=== PATIENT | female | born 1985 | race Caucasian/White ===

== ENCOUNTER 2017-12-10 23:28 | Outpatient (CLI) | payer BC, OTHER ==
[~2017-12-10] VITALS: Ht 160 cm; Wt 98.2 kg
[~2017-12-10 23:28] MED LIST: ADIPEX-P37.5 MG PO; FLINTSTONES1 CTB PO; MIRENA52 MG IU; PREDNISONE20 MG PO; ZYRTEC5 MG PO
[2017-12-10 23:48] VITALS: BP 136/78; PULSE 104; TEMP 98.5
[2017-12-10] MEDS ORDERED: CALCIUM CARBON650 M2 PO (23:52)
[2017-12-10] MEDS ORDERED: PRENATAL MVI PO (23:53)
[2017-12-10] MEDS ORDERED: TYLENOL 500MG500 MG PO (23:54)
[2017-12-11] VITALS (7 sets, daily range): BP systolic 105–126; BP diastolic 61–75; PULSE 78–108
[2017-12-11 00:26] LABS: BASO % 0.2 % (0.0-2.0); EOS # 0.1 (0.0-0.7); EOS % 1.4 % (0-4.0); GRAN # 7.6 (1.4-6.5); GRAN % 74.2 % (42.2-75.2); HEMATOCRIT 32.8 % (37.0-47.0); HEMOGLOBIN 10.9 g/dl (12.5-16.0); LYMPH # 1.7 (1.2-3.4); LYMPH % 16.8 % (20.0-51.0); MEAN CELL VOLUME 84 fl (80.0-100.0); MEAN CORPUSCULAR HEMOGLOBIN 28 pg (27.0-31.0); MEAN CORPUSCULAR HGB CONC 33 g/dl (33.0-37.0); MEAN PLATELET VOLUME 9.9 fl (7.4-10.4); MONO # 0.7 (0.1-0.6); MONO % 6.7 % (1.7-9.3); PLATELET COUNT 242 K/mm3 (130-400); RED BLOOD COUNT 3.91 M/mm3 (4.10-5.30); REDCELL DISTRIBUTION WIDTH-CV 12.7 % (11.5-14.5)
[2017-12-11 00:36] LABS: ALBUMIN 3.4 gm/dL (3.5-5.0); BILIRUBIN,TOTAL 0.2 mg/dL (0.0-1.0); CALCIUM 9.1 mg/dL (8.4-10.2); CREATININE, serum 0.5 mg/dL (0.52-1.25); POTASSIUM 3.8 mmol/L (3.4-5.0); TOTAL PROTEIN 6.5 gm/dL (6.4-8.2)
[2017-12-11 01:28] LABS: COLLECTION METHOD CLEAN CATCH
[2017-12-11 01:33] LABS: PH 6 (5-8); URINE APPEARANCE Clear; URINE BACTERIA Rare /hpf; URINE BILIRUBIN Negative (NEGATIVE); URINE BLOOD Negative (NEGATIVE); URINE COLOR Yellow; URINE GLUCOSE Negative (NEGATIVE); URINE KETONE Negative (NEGATIVE); URINE LEUKOCYTE ESTERASE Negative (NEGATIVE); URINE NITRATE Negative (NEGATIVE); URINE PROTEIN(semi-quant) Negative (NEGATIVE); URINE RBC None Seen /hpf; URINE UROBILINOGEN Negative (NEGATIVE); URINE WBC 0-2 /hpf
== END 2017-12-11 01:57 | disposition home or self-care (01) ==
LOC: LDRO 23:28
PROVIDERS: Obstetrics & Gynecology
DX: O99.89 Other specified diseases and conditions complicating pregnancy, childbirth and the puerperium (principal); R10.9 Unspecified abdominal pain; Z3A.31 31 weeks gestation of pregnancy

== ENCOUNTER 2018-02-03 05:28 | Inpatient (IN) | payer BC, OTHER ==
[2018-02-03] VITALS (18 sets, daily range): BP systolic 99–142; BP diastolic 57–90; PULSE 74–99; TEMP 97.8–98.2
[~2018-02-03] VITALS: Ht 160 cm; Wt 101.4 kg
[~2018-02-03 05:28] MED LIST changes: +CALCIUM CARBON650 M2 PO; +PRENATAL MVI PO; +TYLENOL 500MG500 MG PO
[2018-02-03 06:26] LABS: BASO % 0.2 % (0.0-2.0); EOS # 0.1 (0.0-0.7); EOS % 1.4 % (0-4.0); GRAN % 61.5 % (42.2-75.2); HEMOGLOBIN 11.7 g/dl (12.5-16.0); LYMPH # 1.8 (1.2-3.4); LYMPH % 27.5 % (20.0-51.0); MEAN CELL VOLUME 81 fl (80.0-100.0); MEAN CORPUSCULAR HEMOGLOBIN 27 pg (27.0-31.0); MEAN CORPUSCULAR HGB CONC 34 g/dl (33.0-37.0); MEAN PLATELET VOLUME 11.2 fl (7.4-10.4); MONO # 0.6 (0.1-0.6); MONO % 8.6 % (1.7-9.3); PLATELET COUNT 236 K/mm3 (130-400); RED BLOOD COUNT 4.33 M/mm3 (4.10-5.30); REDCELL DISTRIBUTION WIDTH-CV 13.3 % (11.5-14.5)
[2018-02-03 06:29] LABS: HEMATOCRIT 34.9 % (37.0-47.0)
[2018-02-03] MEDS ORDERED: MOTRIN 800800 MG/TAB PO (06:59)
[2018-02-03] MEDS ORDERED: PERCOCET 325 MG1 TA2 PO (06:59)
[2018-02-04 07:06] LABS: HEMATOCRIT 32.6 % (37.0-47.0); HEMOGLOBIN 10.9 g/dl (12.5-16.0)
[2018-02-04 07:31] VITALS: BP 118/69; PULSE 84; TEMP 97.6
[2018-02-04 21:23] VITALS: BP 122/74; PULSE 100; TEMP 98.2
[2018-02-05 07:29] VITALS: BP 120/73; PULSE 85; TEMP 97.9
== END 2018-02-05 12:10 | disposition home or self-care (01) | DRG 785 ==
LOC: OB 05:28 → LDR 09:49 → OB 02-04 05:37
PROVIDERS: Obstetrics & Gynecology
PROC: 10D00Z1 Extraction of Products of Conception, Low, Open Approach (ICD-10-PCS; principal; 2018-02-03)
PROC: 0UT60ZZ Resection of Left Fallopian Tube, Open Approach (ICD-10-PCS; 2018-02-03)
PROC: 0UB50ZZ Excision of Right Fallopian Tube, Open Approach (ICD-10-PCS; 2018-02-03)
DX: O34.211 Maternal care for low transverse scar from previous cesarean delivery (principal); O99.214 Obesity complicating childbirth; Z3A.39 39 weeks gestation of pregnancy; Z37.0 Single live birth; O99.824 Streptococcus B carrier state complicating childbirth; Z30.2 Encounter for sterilization; O69.81X0 Labor and delivery complicated by cord around neck, without compression, not applicable or unspecified; N73.6 Female pelvic peritoneal adhesions (postinfective)
CPT/HCPCS: J0690; J1885; J2370; J2405; J2590; J7120

== ENCOUNTER 2018-09-11 20:06 | Emergency (ER) | payer BC, OTHER ==
[~2018-09-11] VITALS: Ht 160 cm; Wt 85.5 kg
[~2018-09-11 20:06] MED LIST changes: +MOTRIN 800800 MG/TAB PO; +PERCOCET 325 MG1 TA2 PO
[2018-09-11 20:11] VITALS: BP 124/91; PULSE 104; TEMP 97
== END 2018-09-11 21:00 | disposition home or self-care (01) ==
LOC: COL.ER 20:06
DX: S61.411A Laceration without foreign body of right hand, initial encounter (principal); W26.0XXA Contact with knife, initial encounter; Y92.009 Unspecified place in unspecified non-institutional (private) residence as the place of occurrence of the external cause

== ENCOUNTER → 2019-10-26 | Outpatient (CLI) | payer BC, OTHER ==
[~2019-10-26] MED LIST changes: +MIRENA52 MG IY; +NORCO 325 MG-51 TAB PO
== END ==
LOC: COL.RAD 10:18
DX: R74.8 Abnormal levels of other serum enzymes (principal)

== ENCOUNTER 2021-05-01 09:36 | Emergency (ER) | payer OTHER ==
[~2021-05-01] VITALS: Ht 160 cm; Wt 81.8 kg
[2021-05-01 09:52] VITALS: TEMP 98.9
[2021-05-01 10:09] LABS: COLLECTION METHOD CLEAN CATCH
[2021-05-01 10:18] LABS: MUCOUS Present (NOT PRESENT); PH 5 (5-8); SQUAMOUS EPITHELIAL 0-2 /hpf (0-10); URINE APPEARANCE Clear (CLEAR/HAZY); URINE BACTERIA Rare /hpf (NONE SEEN); URINE BILIRUBIN Negative (NEGATIVE); URINE BLOOD Negative (NEGATIVE); URINE COLOR Yellow (YELLOW); URINE GLUCOSE Negative (NEGATIVE); URINE KETONE Trace (NEGATIVE); URINE LEUKOCYTE ESTERASE Negative (NEGATIVE); URINE NITRATE Negative (NEGATIVE); URINE PROTEIN(semi-quant) Negative (NEGATIVE); URINE RBC 0-2 /hpf (0-2); URINE UROBILINOGEN Negative (NEGATIVE)
[2021-05-01 11:17] LABS: HEMATOCRIT 41.7 % (37.0-47.0); HEMOGLOBIN 13.9 g/dl (12.5-16.0); MEAN CELL VOLUME 89 fl (80.0-100.0); MEAN CORPUSCULAR HEMOGLOBIN 30 pg (27-31); MEAN CORPUSCULAR HGB CONC 33 g/dl (33.0-37.0); MEAN PLATELET VOLUME 9.6 fl (7.4-10.4); PLATELET COUNT 220 K/mm3 (130-400); REDCELL DISTRIBUTION WIDTH-CV 11.9 % (11.5-14.5)
[2021-05-01 11:40] LABS: BILIRUBIN,TOTAL 0.5 mg/dL (0.2-1.2); C-REACTIVE PROTEIN 0.82 mg/dL (0.00-0.50); CALCIUM 8.3 mg/dL (8.4-10.2); CREATININE, serum 0.75 mg/dL (0.57-1.11); POTASSIUM 3.6 mmol/L (3.5-4.5)
[2021-05-01 11:52] LABS: BAND 4 % (0-10); LYMPHOCYTE 7 % (20.0-51.0); NEUTROPHILS 88 % (42.0-75.2); PLATELET ESTIMATE NORMAL (NORMAL)
[2021-05-01] MEDS ORDERED: NORCO 325 MG-51 TAB PO (13:54)
[2021-05-01 14:18] VITALS: BP 108/79; PULSE 110
== END 2021-05-01 14:18 | disposition home or self-care (01) ==
LOC: COL.ER 09:36
PROVIDERS: Emergency Medicine; Nurse Practitioner
DX: R10.11 Right upper quadrant pain (principal); R10.12 Left upper quadrant pain; R11.2 Nausea with vomiting, unspecified; Z32.02 Encounter for pregnancy test, result negative
CPT/HCPCS: J1170; J2405; J7030

== ENCOUNTER 2021-08-07 05:30 | Observation (INO) | payer OTHER ==
[2021-08-07] VITALS (10 sets, daily range): BP systolic 127–145; BP diastolic 81–93; PULSE 58–66; TEMP 97.3–98.6
[~2021-08-07] VITALS: Ht 160 cm; Wt 84.0 kg
[2021-08-07 06:00] LABS: BASO % 0.3 % (0.0-2.0); EOS # 0.1 K/mm3 (0.0-0.7); EOS % 2.2 % (0.0-4.0); GRAN # 3.5 K/mm3 (1.4-6.5); GRAN % 60.4 % (42.2-75.2); HEMOGLOBIN 11.9 g/dl (12.5-16.0); LYMPH # 1.7 K/mm3 (1.2-3.4); LYMPH % 29.4 % (20.0-51.0); MEAN CELL VOLUME 88 fl (80.0-100.0); MEAN CORPUSCULAR HEMOGLOBIN 30 pg (27-31); MEAN CORPUSCULAR HGB CONC 34 g/dl (33.0-37.0); MONO # 0.4 K/mm3 (0.1-0.6); MONO % 7.2 % (1.7-9.3); PLATELET COUNT 213 K/mm3 (130-400)
[2021-08-07 06:01] LABS: HEMATOCRIT 35.1 % (37.0-47.0)
[2021-08-07 06:20] LABS: ALBUMIN 3.8 gm/dL (3.5-5.0); BILIRUBIN,TOTAL 1.7 mg/dL (0.2-1.2); CALCIUM 8.5 mg/dL (8.4-10.2); CREATININE, serum 0.77 mg/dL (0.57-1.11); POTASSIUM 3.7 mmol/L (3.5-4.5)
[2021-08-07] MEDS ORDERED: LEXAPRO20 MG (07:15)
[2021-08-07] MEDS ORDERED: ZYRTEC 10MG10 MG (07:15)
[2021-08-07] MEDS ORDERED: NEXIUM 20MG20 MG PO (07:16)
[2021-08-07] MEDS ORDERED: CARAFATE 1GM1 G PO (07:16)
[2021-08-07] MEDS ORDERED: ADIPEX-P37.5 MG PO (07:17)
[2021-08-07 08:11] LABS: COLLECTION METHOD CLEAN CATCH
[2021-08-07 08:27] LABS: PH 6 (5-8); SQUAMOUS EPITHELIAL 0-2 /hpf (0-10); URINE APPEARANCE Clear (CLEAR/HAZY); URINE BACTERIA None Seen /hpf (NONE SEEN); URINE BILIRUBIN Negative (NEGATIVE); URINE BLOOD Negative (NEGATIVE); URINE COLOR Amber (YELLOW); URINE GLUCOSE Negative (NEGATIVE); URINE KETONE Negative (NEGATIVE); URINE LEUKOCYTE ESTERASE Negative (NEGATIVE); URINE NITRATE Negative (NEGATIVE); URINE PROTEIN(semi-quant) Negative (NEGATIVE); URINE RBC 0-2 /hpf (0-2); URINE UROBILINOGEN Negative (NEGATIVE)
--- NOTE | 2021-08-07 10:24 | NUR ---
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 Patient reports that she lives at home with her [place] ([phone]). She reports to being fully independent with her ADL's and does not utilize any DME to assist with mobility. Patient has no home oxygen needs. PCP is Irina Laura and she utilizes [facility] for perscription needs. Patient states that she does not have a DPOA-HC established and does not wish to create one at this time. Patient is planning on returning home with no concerns. Discharge plan: Home
--- NOTE | 2021-08-07 12:08 | NUR ---
[place]: Nondenominational Situation: [employer] stopped by on rounds Background: PT from the area, we had a good talk as we know some of the same people. Assessment: PT is in good spirits Recommendaton: [employer] will follow up as needed
--- NOTE | 2021-08-07 15:24 | NUR ---
Pt off the floor for surgery
--- NOTE | 2021-08-07 17:36 | NUR ---
Pt arrived back to the floor from [facility]. Pt is drowsy but does wake easily. BP is 135/90, will continue to monitor. Lap sites all CDI with bandaids in place. SCDs on bilaterally. Pt reports that her pain is tolerable. Pt does fall asleep between questions. Call light within reach, will continue to monitor
--- NOTE | 2021-08-07 19:45 | NUR ---
Pt. sitting up in bed. Pt. is A&OX3, assessment complete. INT to rt. wrist patent. Pt. reports pain at a 4 on pain scale, gave pain meds per orders. ABd. incisions CDI with bandaids. Pt. denies further needs, call light within reach.
[2021-08-08 03:15] VITALS: BP 136/91; PULSE 61; TEMP 98
[2021-08-08 06:23] LABS: GRAN # 4.7 K/mm3 (1.4-6.5); GRAN % 81.4 % (42.2-75.2); LYMPH # 0.9 K/mm3 (1.2-3.4); LYMPH % 15.9 % (20.0-51.0); MEAN CELL VOLUME 92 fl (80.0-100.0); MEAN CORPUSCULAR HEMOGLOBIN 30 pg (27-31); MEAN CORPUSCULAR HGB CONC 33 g/dl (33.0-37.0); MEAN PLATELET VOLUME 10.9 fl (7.4-10.4); MONO # 0.1 K/mm3 (0.1-0.6); MONO % 2.4 % (1.7-9.3); PLATELET COUNT 201 K/mm3 (130-400); REDCELL DISTRIBUTION WIDTH-CV 13.1 % (11.5-14.5)
[2021-08-08 06:28] LABS: HEMATOCRIT 36.8 % (37.0-47.0)
[2021-08-08 06:36] LABS: ALBUMIN 3.3 gm/dL (3.5-5.0); BILIRUBIN,TOTAL 1.4 mg/dL (0.2-1.2); CALCIUM 8.4 mg/dL (8.4-10.2); CREATININE, serum 0.7 mg/dL (0.57-1.11); POTASSIUM 4.4 mmol/L (3.5-4.5); TOTAL PROTEIN 6.2 gm/dL (6.2-8.1)
[2021-08-08 07:59] VITALS: BP 136/82; PULSE 73; TEMP 97.7
[2021-08-08] MEDS ORDERED: NORCO 325 MG-51 TAB PO (08:29)
--- NOTE | 2021-08-08 09:28 | NUR ---
DISCHARGE ORDERS RECIEVED. PT TO DISCHARGE HOME LATER THIS AM. ROBOTIC INCISIONS CDI CLOSED WITH SILVA SET. PT DENIES NEEDS.
--- NOTE | 2021-08-08 10:35 | NUR ---
DISCHARGE INSTRUCTIONS PROVIDED TO PT. QUESTIONS ANSWERED. PT LEFT UNIT AMBULATORY WITH STAFF. INT DISCONTINUED, PT TOLERATED WELL.
== END 2021-08-08 10:36 | disposition home or self-care (01) ==
LOC: COL.ER 05:30 → SURG 07:10
PROVIDERS: Student in an Organized Health Care Education/Training Program; ADMIT Surgery
DX: K80.00 Calculus of gallbladder with acute cholecystitis without obstruction (principal)
CPT/HCPCS: G0378; J0330; J0690; J1100; J1170; J1885; J2250; J2270; J2405; J2543; J2704; J3010; J7030; J7120; Q9967

== ENCOUNTER 2021-09-26 20:55 | Emergency (ER) | payer OTHER ==
[~2021-09-26] VITALS: Ht 160 cm; Wt 84.1 kg
[~2021-09-26 20:55] MED LIST changes: +CARAFATE 1GM1 G PO; +LEXAPRO20 MG; +NEXIUM 20MG20 MG PO; +ZYRTEC 10MG10 MG
[2021-09-26 21:09] VITALS: TEMP 98.2
[2021-09-26 21:43] LABS: BASO % 0.5 % (0.0-2.0); EOS # 0.1 K/mm3 (0.0-0.7); EOS % 1.7 % (0.0-4.0); GRAN # 4.4 K/mm3 (1.4-6.5); HEMATOCRIT 38.7 % (37.0-47.0); HEMOGLOBIN 13.2 g/dl (12.5-16.0); LYMPH # 2.2 K/mm3 (1.2-3.4); LYMPH % 29.6 % (20.0-51.0); MEAN CELL VOLUME 88 fl (80.0-100.0); MEAN CORPUSCULAR HEMOGLOBIN 30 pg (27-31); MEAN CORPUSCULAR HGB CONC 34 g/dl (33.0-37.0); MEAN PLATELET VOLUME 9.7 fl (7.4-10.4); MONO # 0.7 K/mm3 (0.1-0.6); MONO % 8.8 % (1.7-9.3); PLATELET COUNT 312 K/mm3 (130-400); RED BLOOD COUNT 4.38 M/mm3 (4.10-5.30); REDCELL DISTRIBUTION WIDTH-CV 12.4 % (11.5-14.5)
[2021-09-26 22:05] LABS: ALBUMIN 4.1 gm/dL (3.5-5.0); BILIRUBIN,TOTAL 0.3 mg/dL (0.2-1.2); CALCIUM 9.6 mg/dL (8.4-10.2); CREATININE, serum 0.81 mg/dL (0.57-1.11); POTASSIUM 4.1 mmol/L (3.5-4.5); TOTAL PROTEIN 7.6 gm/dL (6.2-8.1)
[2021-09-26] MEDS ORDERED: ZOFRAN ODT4 MG PO (23:16)
[2021-09-26] MEDS ORDERED: NORCO 325 MG-51 TAB PO (23:16)
[2021-09-26 23:29] VITALS: BP 134/95; PULSE 81
== END 2021-09-26 23:30 | disposition home or self-care (01) ==
LOC: COL.ER 20:55
PROVIDERS: Personal Emergency Response Attendant
DX: R10.11 Right upper quadrant pain (principal); Z90.49 Acquired absence of other specified parts of digestive tract; Z28.311 Partially vaccinated for COVID-19
CPT/HCPCS: J7030; Q9967